=== PATIENT | male | born 1950 | race Caucasian/White ===

== ENCOUNTER 2016-03-29 08:15 | Day surgery (SDC) | payer OTHER ==
--- NOTE | 2016-03-16 12:48 | GHP ---
[f rep st] PREOP HISTORY AND PHYSICAL Amended report DATE OF SURGERY: March 29, 2016. CHIEF COMPLAINT: This is an otherwise healthy 65-year-old male referred to me by his primary care physician who has noted a bulge near the umbilicus for the past 2 years. He did speak with his previous PCP who is now retired about it, but given the fact that it was giving him little to no discomfort at the time, operative repair was not sought. The patient does state that last week he did have an episode where it became excruciatingly painful. He was able to reduce it while lying supine at that time, but the pain persisted for some time afterwards. He states that other than this initial episode he has had no other new symptoms and that the size has been relatively stable for the past 2 years. He denies having any obstructive symptoms. He continues to tolerate a regular diet and have normal daily bowel function. He denies having fevers and chills, and otherwise feels well. PAST MEDICAL HISTORY: Hypertension, history of thyroid cancer, GERD and nephrolithiasis. PAST SURGICAL HISTORY: Total thyroidectomy performed in 1984. He did receive adjuvant radioactive iodine. Multiple orthopedic procedures. 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 CURRENT MEDICATIONS: Include Synthroid and baby aspirin. ALLERGIES: Demerol and seasonal. SOCIAL HISTORY: Retired, has a [address] in [facility] and is very active. He does have social alcohol but denies any illicit drug use. He was a previous smoker, but quit over 30 years ago. FAMILY HISTORY: Significant for colon cancer and cervical cancer. REVIEW OF SYSTEMS: A full 10-point review was performed and unless explicitly stated is otherwise negative. PHYSICAL EXAM: GENERAL: He is alert and oriented, in no acute distress. CV: He has a regular rate and rhythm without any murmurs. LUNGS: Clear to auscultation. ABDOMEN: Soft, nondistended, nontender. There is a small approximately 5 mm defect adjacent to the umbilicus which does have what appears to be fat protruding through it. This is completely reducible, although it is tender to palpation. There is no rebound tenderness or guarding. His bowel sounds are active. ASSESSMENT AND PLAN: A 65-year-old male with symptomatic umbilical hernia. I had a discussion with the patient in the clinic regarding watchful waiting versus operative repair. Given the fact that it has become more symptomatic over the last few weeks and he is in otherwise good health, I recommended repair. He agreed. We discussed the risks, benefits, and alternatives, including infection and recurrence including damage to the abdominal wall and surrounding organs. I did tell the patient that I would want him to have lifting restrictions of no more than 25 pounds for 3 weeks following surgery which he states he would be able to do so without issue. We will look forward to his surgery tentatively scheduled for March 29, 2016. /[id number]/MODL Add acc#, 03/17/16, karl PATEL
[~2016-03-29 08:15] MED LIST: LIDOCAINE 1% 5 ML SDV ID PRN; LIDOCAINE 1% 5 ML SDV ONE; LR 1,000 ML IV ONE; ceFAZolin 2 GM/DEXTROSE 100 ML IV ONE
[2016-03-29] MEDS ORDERED: MIDAZOLAM 2 MG/2 ML VIAL ONE (10:08)
[2016-03-29] MEDS ORDERED: PROPOFOL 200 MG/20 ML VIAL ONE ×2 (10:15→10:41)
[2016-03-29] MEDS ORDERED: fentaNYL 250 MCG/5 ML INJ ONE (10:15)
[2016-03-29] MEDS ORDERED: LIDOCAINE 2% JELLY 5 ML TUBE ONE (10:19)
[2016-03-29] MEDS ORDERED: LIDOCAINE 2% 5 ML SDV ONE (10:19)
[2016-03-29] MEDS ORDERED: BUPIVACAINE/EPI 0.5% 30 ML SDV ONE (10:21)
[2016-03-29] MEDS ORDERED: BUPIVACAINE/EPI 0.25% 30 ML SDV ONE (10:21)
[2016-03-29] MEDS ORDERED: ROCURONIUM 50 MG/5 ML VIAL ONE ×2 (10:41→10:44)
[2016-03-29] MEDS ORDERED: DEXAMETHASONE 4 MG/ML VIAL ONE ×2 (10:44)
[2016-03-29] MEDS ORDERED: ONDANSETRON 4 MG/2 ML VIAL ONE (10:44)
[2016-03-29] MEDS ORDERED: SUGAMMADEX SODIUM 200 MG/2 ML VIAL IVP ONE (10:56)
[2016-03-29] MEDS ORDERED: SKIN ADHESIVE (DERMABOND) 1 EACH TP ONE (11:01)
[2016-03-29] MEDS ORDERED: KETOROLAC 30 MG/1 ML SDV ONE (11:25)
[2016-03-29] MEDS ORDERED: KETOROLAC 30 MG/1 ML SDV IVP ONE (11:30)
[2016-03-29] MEDS ORDERED: OXYCODONE/APAP 5/325 TAB ONE (12:01)
[2016-03-29] MEDS ORDERED: OXYCODONE/APAP 5/325 TAB PO PRN (12:04)
--- NOTE | 2016-03-29 12:12 | GOP ---
[f rep st] OPERATIVE REPORT DATE OF OPERATION: 03/29/2016 SURGEON: Ruslan Romero MD BET TAKER: Roseanne Huff PA-C ANESTHESIA: General endotracheal. ANESTHESIOLOGIST: Chacorta Mckeon MD PREOPERATIVE DIAGNOSIS: Symptomatic umbilical hernia. POSTOPERATIVE DIAGNOSIS: Symptomatic umbilical hernia. PROCEDURE PERFORMED: Primary umbilical hernia repair measuring 5 mm in greatest distance. FINDINGS: Small 5 mm umbilical hernia repaired primarily with interrupted 0 Ethilon sutures. SPECIMENS: Specimens. DESCRIPTION OF PROCEDURE: The patient was greeted in the preoperative suite. Once again, risks, dina efits, and alternatives were discussed. The consent was signed. He was then brought back to the ope rative suite, placed on the OR table in the supine position. After all anesthesia machines including SCDs were on and functioning, a [employer] time-out was performed. Antibiotics were given on-call to the operating room. General endotracheal anesthesia was then induced without incide nt. The patient's abdomen was then widely prepped and draped in typical sterile fashion. I entered the abdomen with a curvilinear incision inferior to the umbilicus. I carried this down through the s ubcutaneous tissue and I amputated the umbilical stalk from the underlying hernia. I identified the hernia sac and reduced it. It appeared to be preperitoneal fat. I identified the fascial edges of t he hernia and again the hernia measured about 5 mm in greatest dimension. I elected to close it prim arily. After cleaning the fascial edges, I did anesthetize them with Marcaine and then closed them w ith interrupted 0 Ethilon sutures, noting excellent fascial reapproximation with minimal to no tensio n. After doing so, I infiltrated local anesthesia into the subcutaneous tissue. I reapproximated th e umbilical stalk with a single interrupted 3-0 Vicryl suture. I reapproximated the subcutaneous tis shanda with interrupted 3-0 Vicryl and closed the skin with a running 4-0 subcuticular, noting good reap proximation. I then covered this with Dermabond and a sterile dressing. The patient was then extuba mansoor and taken to the PACU in satisfactory condition. Counts: All counts reported as correct x2. COMPLICATIONS: None. /[id number]/MODL
[2016-03-29] MEDS ORDERED: DOCUSATE SODIUM 100 MG CAP PO SCH (16:00)
== END 2016-03-29 12:50 | disposition home or self-care (01) ==
LOC: FSGY 08:15
PROVIDERS: ATTEND Surgery
PROC: 0WQF0ZZ Repair Abdominal Wall, Open Approach (ICD-10-PCS; principal; 2016-03-29 09:45)
DX: K42.9 Umbilical hernia without obstruction or gangrene (principal); I10 Essential (primary) hypertension; Z85.850 Personal history of malignant neoplasm of thyroid; Z87.442 Personal history of urinary calculi
CPT/HCPCS: J0690; J1100; J1885; J2250; J2405; J2704; J3010